=== PATIENT | female | born 1990 | race Two or more races ===

== ENCOUNTER 2018-08-12 12:00 | Emergency (ER) | payer OTHER ==
[2018-08-12 12:55] VITALS: TEMP 98.2
[2018-08-12 13:32] LABS: BASOPHILS % (AUTO) 1 % (0-3); EOSINOPHILS % (AUTO) 0 % (0-9); HEMATOCRIT 42 % (35-47); HEMOGLOBIN 13.7 gm/dl (12.0-15.5); LYMPHOCYTES % (AUTO) 11.1 % (10-50); MEAN CORPUSCULAR HGB CONC 32.8 gm/dl (32.0-36.0); MEAN CORPUSCULAR VOLUME 85 fL (81-99); MONOCYTES % (AUTO) 4.4 % (0-12); NEUTROPHILS % (AUTO) 83.9 % (37-80)
[2018-08-12 13:41] LABS: SODIUM 138 mMol/L (136-145)
[2018-08-12 13:42] LABS: CARBON DIOXIDE 23.9 mEq/L (21-32); CHLORIDE 107 mMol/L (98-107); CREATININE 0.57 mg/dl (0.60-1.00); GLUCOSE 97 mg/dl (74-106); POTASSIUM 3.7 mMol/L (3.5-5.1)
[2018-08-12 14:40] LABS: AMPHETAMINES NEGATIVE (NEGATIVE); APPEARANCE,URINE Slightly Cloudy; BARBITUATES NEGATIVE (NEGATIVE); BENZODIAZEPINES NEGATIVE (NEGATIVE); BILIRUBIN,URINE 2+ (NEGATIVE); CANNABINOL(THC) NEGATIVE (NEGATIVE); COCAINE(COC) NEGATIVE (NEGATIVE); COLOR,URINE Yellow; GLUCOSE, URINE (UA) NEGATIVE (NEGATIVE); KETONES,URINE 4+ (NEGATIVE); LEUKOCYTE ESTERASE ,URINE NEGATIVE (NEGATIVE); METHADONE NEGATIVE (NEGATIVE); METHAMPHETAMINES NEGATIVE (NEGATIVE); NITRATE,URINE NEGATIVE (NEGATIVE); OCCULT BLOOD,URINE NEGATIVE (NEG-TRACE); OPIATES(OPI) NEGATIVE (NEGATIVE); OXYCODONE(OXY) NEGATIVE (NEGATIVE); PROPOXYPHENE(PPX) NEGATIVE (NEGATIVE); TRICYCLIC ANTIDEPRESSANTS NEGATIVE (NEGATIVE)
[2018-08-12 15:06] LABS: EPITHELIAL CELLS 0-2 (SQUAMOUS); ICTOTEST,URINE NEGATIVE (NEGATIVE); RBC,URINE 0-2 (0-3AV/HPF)
[2018-08-12 15:07] LABS: BACTERIA 1+ (< 1+); CRYSTALS NEGATIVE (0-3 AVE/HPF)
[2018-08-12 16:27] VITALS: BP 102/59; PULSE 103; RESP 20; O2SAT 97
[2018-08-12 18:39] LABS: CALCIUM 9.3 mg/dl (8.5-10.1)
[2018-08-12 18:40] LABS: BLOOD UREA NITROGEN 10 mg/dl (7-18)
[2018-08-12 19:27] LABS: ALCOHOL < 0.003 gm/dl (0.000-0.08); THYROID STIMULATING HORMONE < 0.010 uIU/ml (0.358-3.740)
[2018-08-12 19:43] LABS: ALBUMIN 4.1 gm/dl (3.4-5.0); ALKALINE PHOSPHATASE 151 IU/L (46-116); ALT 26 IU/L (14-63); AST 22 IU/L (15-37); BILIRUBIN,TOTAL 1.2 mg/dl (0.2-1.0); TOTAL PROTEIN 8.2 gm/dl (6.4-8.2)
== END 2018-08-12 16:45 | disposition home or self-care (01) | DRG 880 ==
LOC: ED 12:00
DX: R45.851 Suicidal ideations (principal); R63.4 Abnormal weight loss; G47.00 Insomnia, unspecified; R63.0 Anorexia; E05.00 Thyrotoxicosis with diffuse goiter without thyrotoxic crisis or storm
CPT/HCPCS: 36415; 80053; 80305; 80307; 81001; 84443; 84703; 85025; 99282; 99283

== ENCOUNTER 2018-08-13 22:14 | Emergency (ER) | payer OTHER ==
[2018-08-13 22:35] VITALS: BP 116/74; PULSE 112; RESP 20; TEMP 97.4; O2SAT 98
[2018-08-14 00:17] LABS: BARBITUATES NEGATIVE (NEGATIVE); METHADONE NEGATIVE (NEGATIVE); TRICYCLIC ANTIDEPRESSANTS NEGATIVE (NEGATIVE)
[2018-08-14 00:18] LABS: AMPHETAMINES NEGATIVE (NEGATIVE); BENZODIAZEPINES POSITIVE (NEGATIVE); CANNABINOL(THC) NEGATIVE (NEGATIVE); COCAINE(COC) NEGATIVE (NEGATIVE); METHAMPHETAMINES NEGATIVE (NEGATIVE); OPIATES(OPI) NEGATIVE (NEGATIVE); OXYCODONE(OXY) NEGATIVE (NEGATIVE); PROPOXYPHENE(PPX) NEGATIVE (NEGATIVE)
== END 2018-08-14 01:45 | disposition short-term general hospital (02) | DRG 880 ==
LOC: ED 22:14
DX: R45.851 Suicidal ideations (principal); F41.8 Other specified anxiety disorders
CPT/HCPCS: 36415; 80305; 80307; 99282; 99284